=== PATIENT | male | born 1990 | race Hispanic/Latino ===

== ENCOUNTER 2018-01-01 21:53 | Emergency (ER) | payer OTHER ==
[2018-01-01 21:58] VITALS: PULSE 86; RESP 18
[2018-01-01] MEDS ORDERED: Lidocaine 2% w Epi 1:100,000 Inj IJ ONE (23:06)
[2018-01-02] MEDS ORDERED: Bacitracin 500 Units/gm Oint Foilpak UD ONE (00:21)
[2018-01-02 00:54] VITALS: BP 115/70; TEMP 98.5; O2SAT 97
--- NOTE | 2018-01-02 01:20 | ED PDOC ---
HPI: Trauma/Fall - HPI Time Seen by Provider: 01/01/18 22:30 Chief Complaint (Nursing): Abnormal Skin Integrity Chief Complaint (Provider): laceration on chin History Per: Patient History/Exam Limitations: no limitations Onset/Duration Of Symptoms: Hrs Associated Symptoms: denies: Dizziness, Dazed, LOC, Memory Impairment Additional Complaint(s): 27 y/o M with no PMH who states that he was playing basketball when someone hit him in the chin with their elbow, causing a cut. Denies fall, LOC, SALAZAR, dizziness, visual changes, numbness or tingling in extremities. States that he had his tetanus shot within the last few years. Denies HTN, HL, DM, asthma. Past Medical History Reviewed: Historical Data, Nursing Documentation, Vital Signs Vital Signs: Last Vital Signs Temp 98.5 F 01/02/18 00:51 Pulse 86 01/02/18 00:51 Resp 18 01/02/18 00:51 BP 115/70 01/02/18 00:51 Pulse Ox 97 01/02/18 00:51 - Medical History PMH: No Chronic Diseases - Surgical History Surgical History: No Surg Hx - Family History Family History: States: Unknown Family Hx - Living Arrangements Living Arrangements: With Friends/Others - Social History Current smoker - smoking cessation education provided: No Ex-Smoker (has not smoked in the last 12 months): No Drugs: Cannabis (occasional cannabis) - Immunization History Hx Tetanus Toxoid Vaccination: Yes Hx Pneumococcal Vaccination: Yes - Allergies Allergies/Adverse Reactions: Allergies Allergy/AdvReac Type Severity Reaction Status Date / Time No Known Allergies Allergy Verified 01/01/18 21:56 Review of Systems ROS Statement: Except As Marked, All Systems Reviewed And Found Negative Cardiovascular: Negative for: Light Headedness Musculoskeletal: Negative for: Neck Pain, Back Pain Neurological: Negative for: Weakness, Numbness Physical Exam - Reviewed Nursing Documentation Reviewed: Yes Vital Signs Reviewed: Yes - Physical Exam Appears: Positive for: Well Head Exam: Positive for: ATRAUMATIC, NORMAL INSPECTION, NORMOCEPHALIC Skin: Positive for: Normal Color Eye Exam: Positive for: Normal appearance ENT: Positive for: Normal ENT Inspection Neck: Positive for: Normal Cardiovascular/Chest: Positive for: Regular Rate, Rhythm Respiratory: Positive for: Normal Breath Sounds Gastrointestinal/Abdominal: Positive for: Normal Exam - ECG O2 Sat by Pulse Oximetry: 97 Medical Decision Making Medical Decision Making: submental laceration sutured Procedures - Time-Out Type of Procedure: laceratin repair Site of Procedure: chin Correct Patient (with visual ID + MR# on ID Band): Yes Correct Procedure: Yes Correct Site Marked: Yes Medication Reconciliation / Bloodwork / Allergies Checked: Yes - Laceration/Wound Repair Head Wound Length (cm): 1.5 Wound's Depth, Shape: linear Wound Explored: clean Irrigated w/ Saline (ccs): 3 Betadine Prep?: Yes Anesthesia: Lidocaine w/ Epi Volume Anesthetic (ccs): 2 Wound Repaired With: Sutures Suture Size/Type: 5:0, nylon Number of Sutures: 2 Layer Closure?: No Wound Complexity: Simple Disposition - Clinical Impression Clinical Impression: Chin laceration - Patient ED Disposition Is Patient to be Admitted: No Counseled Patient/Family Regarding: Diagnosis, Need For Followup - Disposition Referrals: Arsh Rajan MD [Staff Provider] - Disposition: Routine/Home Disposition Time: 00:50 Condition: STABLE Additional Instructions: Keep area dry and covered for 24hrs. After that, clean gently with soap and water. Keep open to the air as much as possible. Stitches will need to be removed in 5 - 7 days. Return to ER or go to primary care doctor if you develop dizziness, visual changes, fever, chills, drainage from wound. Instructions: Laceration Repair With Stitches (DC) Forms: [employer] (Cymro) Print Language: NIGERIEN
== END 2018-01-02 00:51 | disposition home or self-care (01) ==
LOC: H.ER 21:53
DX: S01.81XA Laceration without foreign body of other part of head, initial encounter (principal); W22.8XXA Striking against or struck by other objects, initial encounter; Y92.310 Basketball court as the place of occurrence of the external cause